=== PATIENT | female | born 1955 | race Caucasian/White ===

== ENCOUNTER 2020-02-29 11:18 | Outpatient (CLI) | payer BC, MEDICARE ==
[~2020-02-29 11:18] MED LIST: BISA10SU54 PR; DIAZ5TAB PO; GABA300C10 PO; INSU100C SQ-INSULIN; INSU100V8 SQ; LISI-167 PO; LISINOPRIL PO; MAGN400O7 PO; METF850T10 PO; OXYC-307 PO; OXYC1TAB18 PO; OXYC20TA2 PO; PT WILL BRING LIST; SENN8.6T98 PO
== END 2020-02-29 23:59 | disposition home or self-care (01) ==
LOC: LAB 11:18
PROVIDERS: ATTEND Nurse Practitioner
DX: Z02.9 Encounter for administrative examinations, unspecified (principal)

== ENCOUNTER 2020-02-29 11:38 | Day surgery (SDC) | payer BC, MEDICARE ==
[~2020-02-29] VITALS: Ht 167.6 cm; Wt 102.0 kg
[2020-02-29 12:41] VITALS: BP 167/93
[2020-02-29] MEDS ORDERED: CEFAZOLIN PMX 1GM/50ML 50 ML IV STA (12:48)
[2020-02-29] MEDS ORDERED: SODIUM CHLORIDE 0.9% 1,000 ML IV SCH (13:00)
[2020-02-29] MEDS ORDERED: LIDOCAINE 1%, 20ML ONE (13:52)
[2020-02-29] MEDS ORDERED: LIDOCAINE 1%, 10ML ONE (13:52)
[2020-02-29] MEDS ORDERED: MIDAZOLAM 1 MG/ML, 5ML ONE ×2 (13:54)
[2020-02-29] MEDS ORDERED: NALOXONE 1 MG/ML, 2ML ONE (13:54)
[2020-02-29] MEDS ORDERED: FENTANYL PF 100 MCG/2ML ONE (13:54)
[2020-02-29] MEDS ORDERED: FLUMAZENIL 0.1 MG/1 ML, 5ML ONE (13:54)
[2020-02-29 16:50] LABS: ALANINE AMINOTRANSFERASE 29 U/L (12-78); ALBUMIN 3.2 g/dL (3.4-5.0); ANION GAP 6 mmol/L (5-15); CALCIUM 8.6 mg/dL (8.5-10.1); CHLORIDE 106 mmol/L (98-107)
[2020-02-29 16:52] LABS: BASOPHILS % (AUTO) 1 % (0-1); EOSINOPHILS % (AUTO) 1 % (1-7); LYMPHOCYTES % (AUTO) 22 % (22-44); MEAN CORPUSCULAR HEMOGLOBIN 30.8 pg (27.0-34.8); MEAN CORPUSCULAR HGB CONC 32.7 g/dL (32.4-35.8); MEAN PLATELET VOLUME 8.5 fL (7.4-10.4); MONOCYTES % (AUTO) 6 % (2-9); NEUTROPHILS % (AUTO) 71 % (42-75); PLATELET COUNT 321 x10^3/uL (130-400); RED BLOOD COUNT 3.71 x10^6/uL (3.82-5.3); RED CELL DISTRIBUTION WIDTH 15.9 % (9.6-15.2)
[2020-02-29 16:53] LABS: ALKALINE PHOSPHATASE 100 U/L (45-117); BILIRUBIN,TOTAL 0.3 mg/dL (0.2-1.0); CREATININE 0.89 mg/dL (0.55-1.02); TOTAL PROTEIN 8.3 g/dL (6.4-8.2)
[2020-02-29 16:54] LABS: MD NO
== END 2020-02-29 16:50 | disposition home or self-care (01) ==
LOC: RAD 11:38
PROVIDERS: ATTEND Pathology Hematology
DX: C7A.098 Malignant carcinoid tumors of other sites (principal); C25.0 Malignant neoplasm of head of pancreas; C78.7 Secondary malignant neoplasm of liver and intrahepatic bile duct; D64.9 Anemia, unspecified; I10 Essential (primary) hypertension; Z79.4 Long term (current) use of insulin; E11.9 Type 2 diabetes mellitus without complications; Z79.891 Long term (current) use of opiate analgesic; Z79.899 Other long term (current) drug therapy; Z87.891 Personal history of nicotine dependence; Z80.0 Family history of malignant neoplasm of digestive organs
CPT/HCPCS: 36415; 36561; 76937; 77001; 80053; 83036; 85025; 86301; 99156; 99157; C1788; C1894; J1642; J2250; J3010; J2310

== ENCOUNTER 2020-03-18 15:55 | Inpatient (IN) | payer BC, MEDICARE ==
[~2020-03-18] VITALS: Ht 167.6 cm; Wt 108.2 kg
[2020-03-18] MEDS ORDERED: SODIUM CHLORIDE 0.9% 1,000ML IVBOLUS ONE ×2 (16:30→17:30)
[2020-03-18] MEDS ORDERED: SODIUM CHLORIDE FLUSH 10ML SYR IVF ONE (16:30)
--- NOTE | 2020-03-18 16:34 | NUR ---
This pt presented to [facility] for N/V/D x3 days. Pt has hx of "rare pancreatic CA," DM, HTN. Pt is awake and alert, oriented. At [place] it was discovered pt has a BS of 1096, LA of 4.6, K of 3.8, WBC of 15.6. Pt given 3L of NS, 10units of IV insulin and an insulin drip of 11.5units/ hour started. She was also given 10meq of K per ems. Pt connected to all monitors, NADN, RR rapid. Pt requesting ice chips, ERP provided.
[2020-03-18 16:40] LABS: O2 FLOW ROOM AIR L/min; PH, VENOUS 7.262 pH (7.320-7.420)
[2020-03-18 16:45] LABS: MEAN CORPUSCULAR HEMOGLOBIN 30.3 pg (27.0-34.8); MEAN PLATELET VOLUME 9.3 fL (7.4-10.4); PLATELET COUNT 307 x10^3/uL (130-400); RED BLOOD COUNT 4.28 x10^6/uL (3.82-5.3); RED CELL DISTRIBUTION WIDTH 16.3 % (9.6-15.2)
[2020-03-18 16:53] LABS: ALBUMIN 2.7 g/dL (3.4-5.0); ANION GAP 14 mmol/L (5-15); CHLORIDE 110 mmol/L (98-107); CREATININE 1.82 mg/dL (0.55-1.02)
--- NOTE | 2020-03-18 16:55 | NUR ---
Insulin drip sent for from RX.
[2020-03-18] MEDS ORDERED: REGULAR INSULIN 100 UNITS in SODIUM CHLORIDE 0.9% 99 ML IV PRN (17:00)
[2020-03-18 17:01] LABS: MD YES
[2020-03-18 17:04] LABS: BAND#(MANUAL) 3.91 x10^3/uL; BANDS%(MANUAL) 17 % (0-7); EOS#(MANUAL) 0.23 x10^3/uL (0.0-0.4); EOS% (MANUAL) 1 % (1-7); LYMPH#(MANUAL) 1.15 x10^3/uL (1-3.4); LYMPHS% (MANUAL) 5 % (22-44); MONOS% (MANUAL) 10 % (2-9); SEG#(MANUAL) 15.41 x10^3/uL (1.8-6.8); SEGS% (MANUAL) 67 % (42-75); TOXIC GRAN 1+
[2020-03-18 17:05] LABS: <PLATELET ESTIMATE> ADEQUATE; <PLT MORPHOLOGY> NORMAL PLT MORPH; ANISOCYTOSIS 1+; POLYCHROMASIA 1+
[2020-03-18 17:13] LABS: ACETONE, SERUM Trace (Negative)
--- NOTE | 2020-03-18 17:31 | NUR ---
Pt up to bedside commode with assistance.
[2020-03-18] MEDS ORDERED: SODIUM CHLORIDE FLUSH 10ML SYR IVF PRN (18:00)
--- NOTE | 2020-03-18 18:29 | NUR ---
Visitors at bedside, and admitting provider at bedside, pt interacting appropriately.
--- NOTE | 2020-03-18 19:06 | NUR ---
BEDSIDE REPORT RECEIVED FROM MAHESH MALDONADO
--- NOTE | 2020-03-18 19:08 | NUR ---
Pt up to bedside commode. Bedside report to JOEL Cortez.
[2020-03-18] MEDS ORDERED: hydrALAzine 20 MG/ML, 1ML IVPush PRN (19:30)
[2020-03-18] MEDS ORDERED: MELATONIN 5 MG TABLET PO PRN (19:30)
[2020-03-18] MEDS ORDERED: LIDODERM 5% PATCH TD PRN (19:30)
[2020-03-18] MEDS ORDERED: SODIUM CHLORIDE 0.9% 1,000 ML IV SCH (19:30)
[2020-03-18] MEDS ORDERED: BISACODYL 10 MG SUPP PR PRN (19:30)
[2020-03-18] MEDS ORDERED: HYDROmorphone 2 MG/ML, 1ML IVPush PRN (19:30)
--- NOTE | 2020-03-18 20:03 | NUR ---
PT SITTINGUPRIGHT ON [place] DOSS, VSS. PT REPORTS INCREASED PAIN AND REQQUESTS PAIN MEDICATION. WILL MEDICATE PER EMAR. PT ALSO REQUESTS "NAUSEA MEDS WITH PAIN MEDS". [facility] AT BEDSIDE.
[2020-03-18] MEDS ORDERED: HEPARIN 5,000 UNITS/ML, 1ML ONE (20:29)
[2020-03-18] MEDS ORDERED: HYDROmorphone 2 MG/ML, 1ML ONE (20:30)
[2020-03-18] MEDS: HEPARIN 5,000 UNITS/ML, 1ML SQ SCH (20:38)
[2020-03-18] MEDS ORDERED: ONDANSETRON 2MG/ML, 2ML ONE (20:41)
[2020-03-18] MEDS: ONDANSETRON 2MG/ML, 2ML IVPush PRN (20:43)
[2020-03-18] MEDS ORDERED: INSULIN LISPRO 100 UNITS/ML, PEN SQ-INSULIN SCH (21:00)
[2020-03-18 21:24] LABS: PH, VENOUS 7.222 pH (7.320-7.420)
[2020-03-18 21:25] LABS: O2 FLOW ROOM AIR L/min
[2020-03-18 21:39] LABS: ANION GAP 12 mmol/L (5-15); CHLORIDE 108 mmol/L (98-107)
[2020-03-18 21:41] LABS: CREATININE 1.57 mg/dL (0.55-1.02)
--- NOTE | 2020-03-18 22:02 | NUR ---
PT UP TO BEDSIDE COMMODE WITH THIS RN. PT DENIES ANY ADDITIONAL NEEDS AT THIS TIME. CALL LIGHT AND PERSONAL BELONGINGS WITHIN REACH.
--- NOTE | 2020-03-18 22:10 | NUR ---
CALL TO RENETTA SCOTT REGARDING CRITICAL GLUCOSE. PRODUCTION PATTERN MAKER PRESCRIBES 25 UNITS HUMALOG INSULIN AND 40MG IV PROTONIX PER PT REQUEST. "I NEED SOMETHING FOR MY ACID REFLUX". WILL MEDICATE PT PER EMAR.
[2020-03-18] MEDS ORDERED: PANTOPRAZOLE 40 MG IV ONE ×2 (22:22→22:25)
[2020-03-18] MEDS ORDERED: INSULIN LISPRO 100 UNIT/ML, 3ML VIAL SQ-INSULIN SCH (23:00)
[2020-03-18] MEDS ORDERED: INSULIN LISPRO 100 UNITS/ML, PEN ONE (23:00)
--- NOTE | 2020-03-18 23:19 | NUR ---
Pt to be admitted to [facility], room 516. Report called to ERICKSON.
[2020-03-18] MEDS ORDERED: INSULIN LISPRO 100 UNIT/ML, 3ML VIAL SQ-INSULIN ONE (23:30)
[2020-03-18] MEDS ORDERED: PANTOPRAZOLE 40 MG IV IVPush ONE (23:30)
[2020-03-19 00:19] VITALS: BP 165/93
[2020-03-19] MEDS ORDERED: CALCIUM CARBONATE 500 MG TAB.CHEW PO PRN (00:30)
[2020-03-19] MEDS ORDERED: SODIUM CHLORIDE 0.9% 1,000 ML IV SCH (00:30)
[2020-03-19] MEDS ORDERED: SODIUM CHLORIDE 0.9% 1,000 ML IV ONE (00:30)
[2020-03-19 01:16] LABS: O2 FLOW ROOM AIR L/min; PH, VENOUS 7.174 pH (7.320-7.420)
[2020-03-19 01:30] LABS: ANION GAP 9 mmol/L (5-15); CALCIUM 8.3 mg/dL (8.5-10.1); CHLORIDE 108 mmol/L (98-107); CREATININE 1.66 mg/dL (0.55-1.02)
[2020-03-19 01:49] LABS: CLOSTRIDIUM DIFFICILE ANTIGEN NEGATIVE; CLOSTRIDIUM DIFFICILE TOXIN NEGATIVE (Negative)
[2020-03-19 01:57] VITALS: BP 149/86
[2020-03-19] MEDS ORDERED: SODIUM CHLORIDE 0.9% 1,000ML IVBOLUS ONE (02:00)
[2020-03-19] MEDS ORDERED: INSULIN LISPRO 100 UNIT/ML, 3ML VIAL SQ-INSULIN ONE (02:00)
[2020-03-19] MEDS ORDERED: SODIUM BICARB 8.4%, 50ML SYRINGE IVPush ONE (02:00)
[2020-03-19] MEDS ORDERED: LOPERAMIDE 2 MG CAPSULE PO PRN (03:00)
[2020-03-19] MEDS ORDERED: DEXTROSE 50%, 50ML SYRINGE IVPush PRN (03:30)
[2020-03-19] MEDS ORDERED: DEXTROSE 4 GM TAB.CHEW PO PRN (03:30)
[2020-03-19] MEDS ORDERED: GLUCAGON 1 MG IM PRN (03:30)
[2020-03-19] MEDS: INSULIN LISPRO 100 UNITS/ML, PEN SQ-INSULIN SCH ×5 (03:35→21:33)
[2020-03-19] MEDS: HEPARIN 5,000 UNITS/ML, 1ML SQ SCH ×3 (03:58→21:31)
[2020-03-19] MEDS: SODIUM CHLORIDE 0.9% 1,000 ML IV SCH ×2 (04:18→09:37)
[2020-03-19 06:04] LABS: MEAN CORPUSCULAR HEMOGLOBIN 30.8 pg (27.0-34.8); MEAN CORPUSCULAR HGB CONC 31.9 g/dL (32.4-35.8); MEAN PLATELET VOLUME 9.1 fL (7.4-10.4); PLATELET COUNT 244 x10^3/uL (130-400); RED BLOOD COUNT 3.92 x10^6/uL (3.82-5.3); RED CELL DISTRIBUTION WIDTH 16.4 % (9.6-15.2)
[2020-03-19 06:27] LABS: MD YES
[2020-03-19 06:29] LABS: BAND#(MANUAL) 0.51 x10^3/uL; BANDS%(MANUAL) 2 % (0-7); LYMPH#(MANUAL) 2.06 x10^3/uL (1-3.4); LYMPHS% (MANUAL) 8 % (22-44); METAMYELOCYTES# (MANUAL) 0.51 x10^3/uL (0-0); METAMYELOCYTES% (MANUAL) 2 % (0-1); MONOS#(MANUAL) 1.03 x10^3/uL (0.3-2.7); MONOS% (MANUAL) 4 % (2-9); SEG#(MANUAL) 21.59 x10^3/uL (1.8-6.8); SEGS% (MANUAL) 84 % (42-75)
[2020-03-19 06:30] LABS: <PLATELET ESTIMATE> ADEQUATE; <PLT MORPHOLOGY> NORMAL PLT MORPH; ANISOCYTOSIS 1+; POLYCHROMASIA 1+
[2020-03-19 06:31] LABS: TOXIC GRAN 1+
[2020-03-19 07:15] VITALS: BP 138/83
[2020-03-19 08:02] LABS: ANION GAP 12 mmol/L (5-15); CALCIUM 8.3 mg/dL (8.5-10.1); CHLORIDE 111 mmol/L (98-107); CREATININE 1.54 mg/dL (0.55-1.02)
[2020-03-19] MEDS ORDERED: INSULIN LISPRO 100 UNITS/ML, PEN SQ-INSULIN SCH (09:00)
[2020-03-19] MEDS: SODIUM CHLORIDE FLUSH 10ML SYR IVF SCH ×2 (09:00→21:00)
[2020-03-19 09:13] LABS: ANION GAP 8 mmol/L (5-15); CALCIUM 8.2 mg/dL (8.5-10.1); CHLORIDE 111 mmol/L (98-107); CREATININE 1.36 mg/dL (0.55-1.02)
[2020-03-19] MEDS: OXYcodone/APAP 10/325MG TABLET PO PRN ×3 (09:18→21:31)
[2020-03-19] MEDS ORDERED: POTASSIUM CHLORIDE 20 MEQ TAB.ER.PRT PO ONE (12:00)
[2020-03-19 13:15] VITALS: BP 147/83
[2020-03-19] MEDS ORDERED: ATOR10TA9 PO (16:02)
[2020-03-19] MEDS ORDERED: HYDR25TA6 PO (16:02)
[2020-03-19] MEDS ORDERED: OMEP40CA42 PO (16:02)
[2020-03-19] MEDS: ONDANSETRON 2MG/ML, 2ML IVPush PRN (17:32)
[2020-03-19 20:10] VITALS: BP 157/86
[2020-03-19] MEDS ORDERED: INSULIN GLARGINE 100 UNITS/ML, PEN SQ-INSULIN SCH (21:00)
[2020-03-19] MEDS ORDERED: ATORVASTATIN 10 MG TABLET PO SCH (21:00)
[2020-03-19] MEDS: OMEPRAZOLE 20 MG CAPSULE.DR PO SCH (21:36)
[2020-03-20 01:45] VITALS: BP 145/79
[2020-03-20] MEDS: HEPARIN 5,000 UNITS/ML, 1ML SQ SCH ×2 (03:19→11:42)
[2020-03-20] MEDS ORDERED: SODIUM CHLORIDE 0.9% 1,000 ML IV SCH ×2 (04:30)
[2020-03-20] MEDS: OXYcodone/APAP 10/325MG TABLET PO PRN (05:25)
[2020-03-20 05:45] LABS: BASOPHILS % (AUTO) 1 % (0-1); EOSINOPHILS % (AUTO) 0 % (1-7); LYMPHOCYTES % (AUTO) 14 % (22-44); MEAN CORPUSCULAR HEMOGLOBIN 30.7 pg (27.0-34.8); MEAN CORPUSCULAR HGB CONC 32.8 g/dL (32.4-35.8); MONOCYTES % (AUTO) 6 % (2-9); NEUTROPHILS % (AUTO) 79 % (42-75); PLATELET COUNT 224 x10^3/uL (130-400); RED BLOOD COUNT 3.72 x10^6/uL (3.82-5.3); RED CELL DISTRIBUTION WIDTH 15.8 % (9.6-15.2)
[2020-03-20 06:00] LABS: CHLORIDE 110 mmol/L (98-107)
[2020-03-20 06:04] LABS: ANION GAP 7 mmol/L (5-15); CREATININE 1.02 mg/dL (0.55-1.02)
[2020-03-20 06:16] LABS: MD SCAN
[2020-03-20 06:39] VITALS: BP 146/83
[2020-03-20] MEDS: OMEPRAZOLE 20 MG CAPSULE.DR PO SCH (07:39)
[2020-03-20] MEDS: SODIUM CHLORIDE FLUSH 10ML SYR IVF SCH (07:39)
[2020-03-20] MEDS: INSULIN LISPRO 100 UNITS/ML, PEN SQ-INSULIN SCH ×2 (07:40→10:41)
[2020-03-20] MEDS ORDERED: HYDROCHLOROTHIAZIDE 25 MG TABLET PO SCH (09:00)
[2020-03-20] MEDS ORDERED: POTASSIUM CHLORIDE 20 MEQ in LACTATED RINGERS 1,000 ML IV SCH (10:00)
[2020-03-20] MEDS ORDERED: SODI650T PO (11:38)
[2020-03-20] MEDS ORDERED: POTASSIUM CHLORIDE 20 MEQ TAB.ER.PRT PO SCH (12:00)
[2020-03-20 13:29] VITALS: BP 149/87
== END 2020-03-20 14:40 | disposition home or self-care (01) | DRG 637 ==
LOC: ED 16:56 → UNDOADMIN 17:39 → EDIP 17:39 → 5SO 23:48 → DCLOUNGE 03-20 14:35
PROVIDERS: ADMIT Internal Medicine; ATTEND Internal Medicine
DX: E11.10 Type 2 diabetes mellitus with ketoacidosis without coma (principal); N17.0 Acute kidney failure with tubular necrosis; C25.9 Malignant neoplasm of pancreas, unspecified; E11.40 Type 2 diabetes mellitus with diabetic neuropathy, unspecified; E78.5 Hyperlipidemia, unspecified; I10 Essential (primary) hypertension; G89.29 Other chronic pain; Z66 Do not resuscitate; M54.9 Dorsalgia, unspecified; E66.9 Obesity, unspecified; Z63.8 Other specified problems related to primary support group; Z87.891 Personal history of nicotine dependence; Z92.21 Personal history of antineoplastic chemotherapy; Z79.4 Long term (current) use of insulin; Z79.899 Other long term (current) drug therapy; Z68.38 Body mass index [BMI] 38.0-38.9, adult
CPT/HCPCS: 36415; 80048; 82010; 82040; 82803; 82962; 83036; 83690; 83735; 84100; 84443; 85025; 87324; G0378; J1170; J1644; J1815; J2405; J3480; C9113; J7030; J7120